=== PATIENT | male | born 1995 | race American Indian/Alaskan Native ===

== ENCOUNTER 2019-03-25 00:16 | Emergency (ER) | payer OTHER ==
[2019-03-25 00:22] VITALS: BP 118/66
--- NOTE | 2019-03-25 01:39 | XRay Report ---
EXAMINATION: Left knee radiograph, 3 views, 03/25/2019 CLINICAL INFORMATION: Left knee pain. No history of trauma is given COMPARISON: None. FINDINGS: There is no evidence of acute fracture or dislocation of the left knee. No significant soft tissue swelling or bony degenerative changes are noted. Signer Name: Danielle Canales MD Signed: 03/25/2019 1:35 AM Workstation Name: [email or web address]
[2019-03-25] MEDS ORDERED: traMADol 50 MG TAB PO ONE (03:22)
--- NOTE | 2019-03-25 04:15 | Emergency Department Report ---
ED Lower Extremity HPI - General Chief Complaint: Extremity Injury, Lower Stated Complaint: LEFT KNEE PAIN Time Seen by Provider: 03/25/19 03:20 Source: patient Mode of arrival: Ambulatory Limitations: No Limitations - History of Present Illness Initial Comments: Mrs. Aceves is a 23-year-old male who presents for knee pain. States he hyperextended his knee 2 days ago getting out of the shower. Patient states she did not fall ,however he felt knee give. pt is partially ambulatory. MD Complaint: knee injury Onset/Timin -: days(s) Injury: Knee: Right Type of Injury: hyperextension Place: home Severity: moderate Severity scale (0 -10): 5 Worsens With: weight bearing, movement, palpation Context: walking Associated Symptoms: snap/pop sensation, swelling, able to partially bear weight. denies: numbness, tingling - Related Data Previous Rx's Medication Instructions Recorded Last Taken Type Azithromycin [Zithromax Z-NICOLAS] 250 mg PO DAILY #6 tablet 01/15/14 Unknown Rx Fluticasone [Flonase] 1 spray NS QDAY #1 bottle 01/15/14 Unknown Rx Cyclobenzaprine [Flexeril] 10 mg PO TID PRN #30 tablet 03/25/19 Unknown Rx Menthol/Camphor [[place] 1 applicatio TP BID PRN 10 Days #1 03/25/19 Unknown Rx Ointment] oint...g. Allergies Allergy/AdvReac Type Severity Reaction Status Date / Time Penicillins Allergy Itching Verified 03/25/19 00:25 ED Review of Systems ROS: Stated complaint: LEFT KNEE PAIN Other details as noted in HPI Constitutional: denies: chills, fever Eyes: denies: eye pain, eye discharge, vision change ENT: denies: ear pain, throat pain Respiratory: denies: cough, shortness of breath, wheezing Cardiovascular: denies: chest pain, palpitations Endocrine: no symptoms reported Gastrointestinal: denies: abdominal pain, nausea, vomiting, diarrhea Genitourinary: denies: urgency, dysuria Musculoskeletal: joint swelling. denies: back pain, arthralgia Skin: denies: rash, lesions Neurological: denies: headache, weakness, paresthesias Psychiatric: denies: anxiety, depression Hematological/Lymphatic: as per HPI ED Past Medical Hx - Past Medical History Previous Medical History?: No - Surgical History Past Surgical History?: Yes Hx Appendectomy: Yes (2006) - Social History Smoking Status: Never Smoker Substance Use Type: Alcohol - Medications Home Medications: Home Medications Medication Instructions Recorded Confirmed Last Taken Type Azithromycin [Zithromax Z-NICOLAS] 250 mg PO DAILY #6 tablet 01/15/14 Unknown Rx Fluticasone [Flonase] 1 spray NS QDAY #1 bottle 01/15/14 Unknown Rx Cyclobenzaprine [Flexeril] 10 mg PO TID PRN #30 tablet 03/25/19 Unknown Rx Menthol/Camphor [[place] 1 applicatio TP BID PRN 10 Days #1 03/25/19 Unknown Rx Ointment] oint...g. ED Physical Exam - General Limitations: No Limitations General appearance: alert, in no apparent distress - Head Head exam: Present: atraumatic, normocephalic - Eye Eye exam: Present: normal appearance, PERRL, EOMI Pupils: Present: normal accommodation - ENT ENT exam: Present: mucous membranes moist - Neck Neck exam: Present: normal inspection, full ROM. Absent: tenderness - Respiratory Respiratory exam: Present: normal lung sounds bilaterally. Absent: respiratory distress, wheezes, chest wall tenderness - Cardiovascular Cardiovascular Exam: Present: regular rate, normal rhythm, normal heart sounds. Absent: systolic murmur, diastolic murmur, rubs, gallop - GI/Abdominal GI/Abdominal exam: Present: soft, normal bowel sounds. Absent: distended, tenderness, bruit, hernia - Rectal Rectal exam: Present: deferred - Extremities Exam Extremities exam: Present: normal inspection, full ROM, tenderness, normal capillary refill, joint swelling. Absent: pedal edema, calf tenderness - Expanded Lower Extremity Exam Left Knee exam: Present: full ROM, tenderness (suprapetellar tendon), swelling, effusion, pain w/ pronation/supination, full knee extension. Absent: abrasion, ecchymosis, deformity, crepidus, dislocation, erythema, posterior draw sign, pain/laxity with valgus, pain/laxity with varus Lower Leg exam: Present: full ROM. Absent: swelling Ankle exam: Present: normal inspection, full ROM. Absent: tenderness, swelling Foot/Toe exam: Present: full ROM. Absent: tenderness, swelling Neuro vascular tendon exam: Absent: pulse deficit, motor deficit, sensory deficit, tendon deficit Gait: Positive: observed and limited by pain - Back Exam Back exam: Present: normal inspection, full ROM, tenderness, paraspinal tenderness, vertebral tenderness. Absent: CVA tenderness (R), CVA tenderness (L), muscle spasm, rash noted - Neurological Exam Neurological exam: Present: alert, oriented X3, CN II-XII intact, normal gait, r eflexes normal. Absent: motor sensory deficit - Psychiatric Psychiatric exam: Present: normal affect, normal mood, anxious - Skin Skin exam: Present: warm, dry, intact, normal color. Absent: rash ED Course Vital Signs 03/25/19 00:20 Temperature 98.3 F Pulse Rate 76 Respiratory 18 Rate Blood Pressure 118/66 O2 Sat by Pulse 99 Oximetry ED Lower Extremity MDM - Radiology Data Radiology results: report reviewed, image reviewed citi cup - Medical Decision Making this is a knee sprain , pianan, naproxen, od right on side walk. Critical care attestation.: If time is entered above; I have spent that time in minutes in the direct care of this critically ill patient, excluding procedure time. ED Disposition Clinical Impression: Knee strain Qualifiers: Encounter type: initial encounter Laterality: right Qualified Code(s): S86.911A - Strain of unspecified muscle(s) and tendon(s) at lower leg level, right leg, initial encounter Disposition: - TO HOME OR SELFCARE Is pt being admited?: No Does the pt Need Aspirin: No Condition: Stable Instructions: Leg Sprain (ED) Prescriptions: Cyclobenzaprine [Flexeril] 10 mg PO TID PRN #30 tablet PRN Reason: Muscle Spasm Menthol/Camphor [[place] Ointment] 1 applicatio TP BID PRN 10 Days #1 oint...g. PRN Reason: Pain , Severe (7-10) Referrals: COY TINSLEY MD [Staff Physician] - 3-5 Days Forms: Work/School Release Form(ED) Time of Disposition: 04:51
== END 2019-03-25 05:00 | disposition home or self-care (01) ==
LOC: ED 00:16
DX: S86.911A Strain of unspecified muscle(s) and tendon(s) at lower leg level, right leg, initial encounter (principal); X50.9XXA Other and unspecified overexertion or strenuous movements or postures, initial encounter; Y93.89 Activity, other specified; Y92.89 Other specified places as the place of occurrence of the external cause; Y99.8 Other external cause status
CPT/HCPCS: 99283

== ENCOUNTER 2019-04-07 09:10 | Emergency (ER) | payer OTHER ==
[2019-04-07] MEDS ORDERED: ACETAMINOPHEN 325 MG/10.15 ML ORAL LIQD UNIT DOSE PO ONE (09:22)
[2019-04-07] MEDS ORDERED: CYCLOBENZAPRINE 10 MG TAB PO ONE (09:44)
[2019-04-07] MEDS ORDERED: BUTALB/ACETAMINOPHEN/CAFFEINE TAB PO ONE (09:44)
--- NOTE | 2019-04-07 09:47 | Emergency Department Report ---
HPI - General Chief Complaint: Upper Respiratory Infection Time Seen by Provider: 04/07/19 09:30 - HPI HPI: 23-year-old -[place] male presents to the emergency department with a 2- 3 day history of generalized body aches that his worst in the low back, a frontal headache that is consistent with his migraines and he presents with a fever today. The patient had not checked his temperature at home. He has been using Excedrin Migraine for his headache without much relief. No vision change, slurred speech or any other neurological deficits. He denies any cough, shortness of breath, sore throat, rash but does have some right ear pain. No Recent travel or sick contacts at home. No PCP. ED Past Medical Hx - Past Medical History Previous Medical History?: No - Surgical History Past Surgical History?: Yes Hx Appendectomy: Yes (2006) - Social History Smoking Status: Never Smoker Substance Use Type: None - Medications Home Medications: Home Medications Medication Instructions Recorded Confirmed Last Taken Type Azithromycin [Zithromax Z-NICOLAS] 250 mg PO DAILY #6 tablet 01/15/14 Unknown Rx Fluticasone [Flonase] 1 spray NS QDAY #1 bottle 01/15/14 Unknown Rx Menthol/Camphor [[place] 1 applicatio TP BID PRN 10 Days #1 03/25/19 Unknown Rx Ointment] oint...g. Cyclobenzaprine [Flexeril 10 MG 10 mg PO TID PRN #12 tablet 04/07/19 Unknown Rx TAB] ED Review of Systems ROS: Stated complaint: FLU SYM Other details as noted in HPI Comment: All other systems reviewed and negative Constitutional: fever. denies: malaise Eyes: denies: eye pain, vision change ENT: ear pain. denies: throat pain Respiratory: denies: cough, shortness of breath Cardiovascular: denies: chest pain, palpitations Gastrointestinal: denies: abdominal pain, vomiting Genitourinary: denies: dysuria, discharge Musculoskeletal: back pain, myalgia Skin: denies: rash, lesions Neurological: headache. denies: weakness, numbness, paresthesias Physical Exam - Physical Exam Vital Signs: Vital Signs 04/07/19 09:19 Temperature 101.7 F H Pulse Rate 117 H Respiratory 18 Rate Blood Pressure 134/77 O2 Sat by Pulse 97 Oximetry Physical Exam: GENERAL: The patient is well-developed well-nourished. HEENT: Normocephalic. Atraumatic. Patient has moist mucous membranes. Oropharynx is clear without tonsillar hypertrophy, erythema or exudates. Normal-appearing bilateral external ear canals and tympanic membranes. EYES: Extraocular motions are intact. Pupils equal and reactive to light bilaterally. NECK: Supple. Trachea is midline. CHEST/LUNGS: Clear to auscultation. There is no respiratory distress noted. HEART/CARDIOVASCULAR: Regular. There is no tachycardia. There is no murmur. ABDOMEN: There is no abdominal distention. SKIN:Skin is warm and dry. . NEURO: The patient is awake, alert, and oriented. The patient is cooperative. The patient has no focal neurologic deficits. Normal speech. MUSCULOSKELETAL: There is no tenderness or deformity. There is no limitation range of motion. There is no evidence of acute injury. BACK: No midline thoracic or lumbar tenderness to palpation, step-off or deformity. There is reproducible lumbar bilateral paraspinal tenderness to palpation. ED Course Vital Signs 04/07/19 09:19 Temperature 101.7 F H Pulse Rate 117 H Respiratory 18 Rate Blood Pressure 134/77 O2 Sat by Pulse 97 Oximetry ED Medical Decision Making - Medical Decision Making This patient presents to the emergency department with the complaint of some body aches that is worst in the low back and feels like a muscle spasm. He also complains of a frontal headache that is consistent with his previous migraines, although lasting slightly longer than usual. Patient was found to have a fever here but did not necessarily feel that he was febrile prior to arrival. Rapid flu was negative for influenza A and B. The patient has no complaints of any sore throat and does not have any examination consistent with strep pharyngitis. He has no complaints of any rash and I do not see any signs of cellulitis. He has no complaints of any cough and his lungs are clear to auscultation and therefore a chest x-ray did not appear indicated at this time. He feels that the low back pain is muscular and says it feels very tight, as it does on examination. He denies any dysuria or discharge. Patient was given some Tylenol for the fever, a Fioricet for his headache, and a Flexeril for his back. Upon reevaluation he is feeling improved. The fever has started to come down and the tachycardia has started to improve. This is most likely consistent with a nonspecific viral syndrome. Patient says that he is allergic to naproxen and therefore no anti-inflammatory was given. He has been instructed to continue using Tylenol and checking his fever. Since the patient says that the headache is consistent with previous migraines, is frontal, and since he does not have any neck pain or stiffness or any altered mental status, it appears low suspicion for meningitis. However, the patient has been instructed to return to the emergency department immediately with any worsening of his symptoms, consistent high-grade fevers, any neck stiffness or neurological changes, or with any acute distress. He understands and agrees to the plan. - Differential Diagnosis influenza, viral syndrome, strep pharyngitis Critical Care Time: No Critical care attestation.: If time is entered above; I have spent that time in minutes in the direct care of this critically ill patient, excluding procedure time. ED Disposition Clinical Impression: Viral syndrome, Muscle spasm of back Fever Qualifiers: Fever type: unspecified Qualified Code(s): R50.9 - Fever, unspecified Disposition: DC-01 TO HOME OR SELFCARE Is pt being admited?: No Condition: Stable Instructions: Fever in Adults (ED), Viral Syndrome (ED) Additional Instructions: Please follow up with a primary care physician in the next few days. Return to the emergency Department with any worsening of your symptoms or any acute distress. You have been prescribed a muscle relaxer that can be sedating. Therefore, this medication cannot be taken prior to driving, working, being responsible for children, and cannot be mixed with alcohol of any quantity. Prescriptions: Cyclobenzaprine [Flexeril 10 MG TAB] 10 mg PO TID PRN #12 tablet PRN Reason: Muscle Spasm Referrals: PRIMARY CAREMD [Primary Care Provider] - 3-5 Days GLEN GOLDSTEIN MD [Staff Physician] - 3-[address] [facility] [Outside] - 3-5 Days Time of Disposition: 10:34
[2019-04-07 10:40] VITALS: BP 127/68
== END 2019-04-07 10:45 | disposition home or self-care (01) ==
LOC: ED 09:10
DX: B34.9 Viral infection, unspecified (principal); M62.830 Muscle spasm of back; R50.9 Fever, unspecified; Z88.0 Allergy status to penicillin; Z88.8 Allergy status to other drugs, medicaments and biological substances; Z90.49 Acquired absence of other specified parts of digestive tract; Z79.899 Other long term (current) drug therapy
CPT/HCPCS: 87400; 99283

== ENCOUNTER 2019-04-12 09:30 | Emergency (ER) | payer OTHER ==
[2019-04-12] MEDS ORDERED: SODIUM CHLORIDE 0.9% 1000 ML 1,000 ML IV ONE ×2 (12:22→13:57)
[2019-04-12] MEDS ORDERED: ONDANSETRON 4 MG/2 ML INJ IV ONE (12:26)
--- NOTE | 2019-04-12 12:26 | Emergency Department Report ---
ED N/V/D HPI - General Chief complaint: Nausea/Vomiting/Diarrhea Stated complaint: FLU SYM REVISIT Time Seen by Provider: 04/12/19 12:10 Source: patient Mode of arrival: Ambulatory Limitations: No Limitations - History of Present Illness Initial comments: 23-year-old male complaining of vomiting 2 weeks. He states he vomits at least twice a day or any time he attempts to eat or drink. Patient also complained of left lower abdominal cramping. He was seen at this emergency room on Sunday diagnosed with the flu. States his symptoms have not resolved currently. Patient state he recently had braces placed to upper mouth b and that has made it difficult for him to eat. Denies diarrhea dry cough no chest pain no shortness of breath MD complaint: nausea - Related Data Previous Rx's Medication Instructions Recorded Last Taken Type Azithromycin [Zithromax Z-NICLOAS] 250 mg PO DAILY #6 tablet 01/15/14 Unknown Rx Fluticasone [Flonase] 1 spray NS QDAY #1 bottle 01/15/14 Unknown Rx Menthol/Camphor [[place] 1 applicatio TP BID PRN 10 Days #1 03/25/19 Unknown Rx Ointment] oint...g. Cyclobenzaprine [Flexeril 10 MG 10 mg PO TID PRN #12 tablet 04/07/19 Unknown Rx TAB] Doxycycline Hyclate [Doxycycline 100 mg PO Q12HR 7 Days #14 tab 04/12/19 Unknown Rx Hyclate TAB] Allergies Allergy/AdvReac Type Severity Reaction Status Date / Time amoxicillin Allergy Itching Verified 04/07/19 09:18 naproxen Allergy Bleeding Verified 04/07/19 09:18 Penicillins Allergy Itching Verified 03/25/19 00:25 ED Review of Systems ROS: Stated complaint: FLU SYM REVISIT Other details as noted in HPI ED Past Medical Hx - Past Medical History Previous Medical History?: No - Surgical History Past Surgical History?: Yes Hx Appendectomy: Yes (2006) - Social History Smoking Status: Never Smoker Substance Use Type: None - Medications Home Medications: Home Medications Medication Instructions Recorded Confirmed Last Taken Type Azithromycin [Zithromax Z-NICOLAS] 250 mg PO DAILY #6 tablet 01/15/14 Unknown Rx Fluticasone [Flonase] 1 spray NS QDAY #1 bottle 10/30/14 Unknown Rx Menthol/Camphor [[place] 1 applicatio TP BID PRN 10 Days #1 03/25/19 Unknown Rx Ointment] oint...g. Cyclobenzaprine [Flexeril 10 MG 10 mg PO TID PRN #12 tablet 04/07/19 Unknown Rx TAB] Doxycycline Hyclate [Doxycycline 100 mg PO Q12HR 7 Days #14 tab 04/12/19 Unknown Rx Hyclate TAB] ED Physical Exam - General Limitations: No Limitations ED Course Vital Signs 04/12/19 04/12/19 04/12/19 09:33 12:52 13:50 Temperature 99.1 F Pulse Rate 103 H 99 H Respiratory 20 18 18 Rate Blood Pressure 122/77 Blood Pressure 122/60 [Right] O2 Sat by Pulse 97 99 99 Oximetry ED Medical Decision Making - Lab Data Result diagrams: 04/12/19 12:52 04/12/19 11:41 Critical care attestation.: If time is entered above; I have spent that time in minutes in the direct care of this critically ill patient, excluding procedure time. ED Disposition Clinical Impression: Lymphadenitis Leukopenia Qualifiers: Leukopenia type: lymphocytopenia Qualified Code(s): D72.810 - Lymphocytopenia Disposition: DC-01 TO HOME OR SELFCARE Is pt being admited?: No Does the pt Need Aspirin: No Condition: Stable Instructions: Lymphadenopathy (ED) Additional Instructions: YOUR WHITE BLOOD CELL WHICH IS YOUR INFECTION FIGHTING CELL IS LOW 1.8. SOME OF THE CAUSES OF LOW WBC COULD BE HIV OR LEUKEMIA. IF IS VERY IMPORTANT THAT YOU FOLLOW UP WITH YOUR DOCTOR SOON POSSIBLE. TAKE ANTIBIOTIC PRESCRIBED RETURN TO ER FOR FEVER INCREASING PAIN OR OTHER SIGS OF INFECTION Prescriptions: Doxycycline Hyclate [Doxycycline Hyclate TAB] 100 mg PO Q12HR 7 Days #14 tab Time of Disposition: 15:00
[2019-04-12 12:44] LABS: Alanine Aminotransferase 14 units/L (7-56); Albumin 4.3 g/dL (3.9-5); BUN/Creatinine Ratio 11; Blood Urea Nitrogen 10 mg/dL (9-20); Calcium 9.3 mg/dL (8.4-10.2); Hemolysis Index 14
[2019-04-12 12:47] LABS: Bilirubin,Urine NEG (Negative); Blood,Urine SM (Negative); Color,Urine Amber (Yellow); Mucus,Urine 3+ /HPF
[2019-04-12 13:09] LABS: Hematocrit 47.8 % (35.5-45.6); Hemoglobin 16.6 gm/dl (11.8-15.2); Mean Corpuscular HGB Conc 35 % (32-34); Mean Corpuscular Volume 92 fl (84-94); Platelet Count 161 K/mm3 (140-440)
[2019-04-12 13:52] VITALS: BP 122/60
[2019-04-12 14:07] LABS: Anisocytosis 1+; Eosinophils % (Manual) 0 % (0.0-4.3); Poikilocytosis 3+; Total Cells Counted 100
[2019-04-12 14:08] LABS: Ovalocytes 3+
[2019-04-12 14:13] LABS: Platelet Estimate Consistent w Auto
== END 2019-04-12 15:13 | disposition home or self-care (01) ==
LOC: ED 09:30
DX: I88.9 Nonspecific lymphadenitis, unspecified (principal); D72.819 Decreased white blood cell count, unspecified; R11.2 Nausea with vomiting, unspecified; Z90.49 Acquired absence of other specified parts of digestive tract; Z79.899 Other long term (current) drug therapy; Z88.0 Allergy status to penicillin; Z88.1 Allergy status to other antibiotic agents; Z88.8 Allergy status to other drugs, medicaments and biological substances
CPT/HCPCS: 36415; 80053; 81001; 83690; 85007; 85025; 96361; 96374; 99283; J2405; J7030